=== PATIENT | female | born 1935 | race Caucasian/White ===

== ENCOUNTER 2016-08-18 11:29 | Emergency (ER) | payer MEDICARE ==
[2015-06-19 12:29] VITALS: BMI 34.7
[~2016-08-18 11:29] MED LIST: ALDACTONE25 MG PO; ARICEPT10 MG PO; ARTIFICIAL TEAR15 ML EACH EYE; ASPIRIN EC81 M1 PO; BUSPAR10 MG PO; BUSPAR5 MG PO; CALCIUM 600+D T1 TA1 PO; CRANBERRY475 MG PO; DULCOLAX5 MG; ECOTRIN325 MG PO; EFFEXOR XR150 MG PO; EFFEXOR75 MG PO; FERROUS SULFAT325 MG PO; FLORANEX / LACT1 TAB PO; FOLATE0.4 MG PO; GABAPENTIN100 MG PO; GUAIFENESI100 MG/5 M PO; HUMALOG 30100 UNITS/; HYDROCODONE-APA1 TAB PO; IMDUR60 MG PO; INVANZ1 G/VIAL IM; IPRAT-ALBUT 0.5-3 ML UPD; KLONOPIN1 MG PO; LANTUS INSULIN10 ML SC; LANTUS INSULIN10 ML SQ; LASIX20 MG PO; LEVAQUIN250 MG PO; LEVAQUIN500 MG PO; LIPITOR20 MG PO; LOPID600 MG PO; MAG-OX 400 MG400 MG PO; MAGNESIUM CHLORIDE PO; MULTI-DAY VITAM1 TAB PO; NEURONTIN600 MG PO; NEXIUM40 MG PO; NIASPAN1000 MG PO; NIASPAN500 MG PO; NORCO 10/325 TA1 TA1; NYSTATIN ORAL SU5 ML PO; ONGLYZA5 MG PO; PRAVACHOL40 MG PO; REFRESH TEARS15 ML EACH EYE; ROBITUSSIN DM 110 ML PO; SODIUM BICARBO325 MG PO; SYNTHROID25 MCG PO; SYSTANE NIGHTT3.5 GM EACH EYE; TESSALON PERLE100 MG PO; ULORIC40 MG PO; VITAMIN D5000 UNIT PO; WELLBUTRIN100 MG PO; WELLBUTRIN75 MG PO
== END 2016-08-18 15:47 | disposition home or self-care (01) ==
LOC: D.ER 11:29
DX: S91.311A Laceration without foreign body, right foot, initial encounter (principal); X58.XXXA Exposure to other specified factors, initial encounter; Y93.89 Activity, other specified; Y92.89 Other specified places as the place of occurrence of the external cause; S80.02XA Contusion of left knee, initial encounter; I50.9 Heart failure, unspecified; I12.9 Hypertensive chronic kidney disease with stage 1 through stage 4 chronic kidney disease, or unspecified chronic kidney disease; N18.9 Chronic kidney disease, unspecified; K21.9 Gastro-esophageal reflux disease without esophagitis; F32.9 Major depressive disorder, single episode, unspecified

== ENCOUNTER 2016-09-22 13:47 | Outpatient (CLI) | payer MEDICARE ==
[2015-06-19 12:29] VITALS: BMI 34.7
--- NOTE | 2016-09-22 19:05 | NUR ---
BLOOD TRANSFUSION COMPLETE. PATIENT SITTING IN PARMINDER CHAIR IN ROOM, AWAKE, ALERT, DENIES COMPLAINTS, IV FLUSHED WITH NS
--- NOTE | 2016-09-22 20:05 | NUR ---
PATIENT SITTING IN PARMINDER CHAIR IN ROOM, SLEEPING, EASILY AROUSED, PATIENT HAS NO SIGNS OR SYMPTOMS OF TRANSFUSION REACTION. RIGHT HAND PIV DC'D WITH TIP INTACT. PATIENT DISCHARGED HOME VIA [facility]ER CHAIR WITH [facility] TRANSPORTATION STAFF MEMBER. REPORT CALLED TO REMIGIO AT [facility]
== END 2016-09-22 20:05 | disposition other institution (70) ==
LOC: D.OPS 13:47
DX: D64.9 Anemia, unspecified (principal); R53.81 Other malaise; R06.02 Shortness of breath

== ENCOUNTER 2017-02-17 08:16 | Inpatient (IN) | payer MEDICARE ==
[~2017-02-17] VITALS: Ht 157.5 cm; Wt 77.1 kg
[2017-02-17 08:52] LABS: BASOPHILS 0.4 % (0-2); EOSINOPHILS 3.6 % (0-7); HEMATOCRIT 34.4 % (36.0-48.0); HEMOGLOBIN 10.8 g/dL (12-16); IMMATURE GRANULOCYTES 0.9 % (0-5); LYMPHOCYTES 13.8 % (15-50); MCH 27.5 pg (26.0-34.0); MCHC 31.4 g/dL (31.0-37.0); MCV 87.5 fL (80.0-100.0); MEAN PLATELET VOLUME 10.4 fL (7.4-10.4); MONOCYTES 9.9 % (2-11); NEUTROPHILS 71.4 % (40-80); PLATELET COUNT 372 10x3/uL (130-400); RBC 3.93 10x6/uL (4.00-5.40); RDW 15.1 % (11.5-14.5); WBC 11.1 10x3/uL (4.8-10.8)
[2017-02-17 09:07] LABS: ALBUMIN 2.2 g/dL (3.4-5.0); BILIRUBIN - TOTAL 0.17 mg/dL (0.2-1.3); CALCIUM 8.7 mg/dL (8.5-10.1); CARBON DIOXIDE 22.3 mmol/L (21.0-32.0); CREATININE - SERUM 3.3 mg/dL (0.6-1.3); POTASSIUM - SERUM 4.3 mmol/L (3.5-5.1); PROTEIN - SERUM 6.4 g/dL (6.4-8.2)
[2017-02-17 09:55] LABS: COLOR YELLOW (YELLOW)
[2017-02-17 09:56] LABS: APPEARANCE TURBID (CLEAR); BILIRUBIN NEGATIVE (NEGATIVE); GLUCOSE 500 mg/dL (NEGATIVE); KETONE NEGATIVE (NEGATIVE); NITRITE NEGATIVE (NEGATIVE); PROTEIN 3+ mg/dL (NEGATIVE); SPECIFIC GRAVITY 1.015 (1.005-1.020); UROBILINOGEN NORMAL (NORMAL)
[2017-02-17 10:00] LABS: WHITE CELLS - URINE >50 /hpf (0-5)
[2017-02-17 10:01] LABS: BACTERIA FEW /hpf (NONE SEEN); EPITHELIAL CELLS 0-5 /hpf (0-5)
[2017-02-17 10:02] LABS: AMORPHOUS SEDIMENT <1+ /lpf (NONE SEEN); YEAST NONE SEEN /hpf (NONE SEEN)
[2017-02-17 10:09] LABS: HYALINE CAST RARE /lpf (NONE SEEN); MUCUS <1+ /lpf (NONE SEEN)
[2017-02-17 21:00] VITALS: BP 127/53
[2017-02-17] MEDS ORDERED: PHENYTOIN100 MG/4 M PO (22:33)
[2017-02-17] MEDS ORDERED: NOVOLOG100 U/M1 SC (22:43)
[2017-02-18] VITALS (7 sets, daily range): BP systolic 127–179; BP diastolic 44–75; Ht 157.5 cm; Wt 77.1 kg
[2017-02-18] MEDS ORDERED: DILANTIN 12525 MG/ML PT (02:27)
[2017-02-18] MEDS ORDERED: FISH OIL 1,0001 CA1 PO (02:28)
[2017-02-18] MEDS ORDERED: HEALTHYLAX17 GM PO (02:30)
[2017-02-18] MEDS ORDERED: NEURONTIN 300300 MG PO (02:31)
[2017-02-18] MEDS ORDERED: NATURAL SENNA8.6 MG PO (02:32)
[2017-02-18] MEDS ORDERED: LANTUS INSULIN10 ML SC (02:33)
[2017-02-18] MEDS ORDERED: BUSPAR5 MG PO (02:35)
[2017-02-18] MEDS ORDERED: HYSINGLA ER30 MG PO (02:37)
[2017-02-18 08:38] LABS: ANION GAP 16.2 mmol/L (8-16); CALCIUM 8.2 mg/dL (8.5-10.1); CARBON DIOXIDE 20.2 mmol/L (21.0-32.0); POTASSIUM - SERUM 4.4 mmol/L (3.5-5.1)
[2017-02-18 16:35] LABS: COMPLEMENT C4 21.4 mg/dL (17.4-52.2)
[2017-02-18 17:46] LABS: ERYTHROCYTE SEDIMENTATION RATE 70 mm/hr (0-30)
[2017-02-19 00:59] VITALS: BP 126/57
[2017-02-19 05:27] VITALS: BP 129/52
[2017-02-19 07:23] LABS: BASOPHILS 0.2 % (0-2); EOSINOPHILS 2.3 % (0-7); HEMATOCRIT 31.2 % (36.0-48.0); HEMOGLOBIN 9.6 g/dL (12-16); IMMATURE GRANULOCYTES 0.7 % (0-5); LYMPHOCYTES 11.5 % (15-50); MCH 26.7 pg (26.0-34.0); MCHC 30.8 g/dL (31.0-37.0); MCV 86.7 fL (80.0-100.0); MEAN PLATELET VOLUME 10.5 fL (7.4-10.4); MONOCYTES 8.9 % (2-11); NEUTROPHILS 76.4 % (40-80); PLATELET COUNT 344 10x3/uL (130-400); RDW 14.8 % (11.5-14.5); WBC 9.4 10x3/uL (4.8-10.8)
[2017-02-19 07:27] LABS: ANION GAP 17.7 mmol/L (8-16); CALCIUM 7.6 mg/dL (8.5-10.1); CARBON DIOXIDE 17.1 mmol/L (21.0-32.0); CREATININE - SERUM 2.9 mg/dL (0.6-1.3); POTASSIUM - SERUM 3.8 mmol/L (3.5-5.1)
[2017-02-19 08:52] VITALS: BP 110/54
[2017-02-19 11:15] LABS: APPEARANCE CLOUDY (CLEAR); BILIRUBIN NEGATIVE (NEGATIVE); COLOR YELLOW (YELLOW); GLUCOSE NEGATIVE (NEGATIVE); KETONE NEGATIVE (NEGATIVE); NITRITE NEGATIVE (NEGATIVE); PROTEIN 3+ mg/dL (NEGATIVE); SPECIFIC GRAVITY 1.015 (1.005-1.020); UROBILINOGEN NORMAL (NORMAL); WHITE CELLS - URINE >50 /hpf (0-5)
[2017-02-19 11:16] LABS: BACTERIA MODERATE /hpf (NONE SEEN); EPITHELIAL CELLS 0-5 /hpf (0-5); RED CELLS - URINE >50 /hpf (0-5)
[2017-02-19 12:07] VITALS: BP 100/50
[2017-02-19 12:19] LABS: CREATININE - URINE 40.7 mg/dL (30-125)
[2017-02-19 12:20] LABS: PRO/CRE RATIO URINE 15.9 mg/g; PROTEIN - URINE 647.2 mg/dL (0.0-11.9)
[2017-02-19 18:02] VITALS: BP 156/64
[2017-02-19 20:07] VITALS: BP 94/43
[2017-02-20] VITALS: BP 167/59
[2017-02-20 05:21] VITALS: BP 102/61
[2017-02-20 07:51] VITALS: BP 140/66
[2017-02-20 11:43] VITALS: BP 132/60
[2017-02-20 13:29] LABS: ANION GAP 16.2 mmol/L (8-16); CALCIUM 7.6 mg/dL (8.5-10.1); CARBON DIOXIDE 20.7 mmol/L (21.0-32.0); CREATININE - SERUM 2.7 mg/dL (0.6-1.3); POTASSIUM - SERUM 3.9 mmol/L (3.5-5.1)
[2017-02-20 14:38] LABS: COMPLEMENT C4 24.4 mg/dL (17.4-52.2)
[2017-02-20 15:27] LABS: ERYTHROCYTE SEDIMENTATION RATE 65 mm/hr (0-30)
[2017-02-20 16:31] VITALS: BP 136/66
[2017-02-20 18:43] LABS: CREATININE - URINE 37.5 mg/dL (30-125); PRO/CRE RATIO URINE 15.9 mg/g; PROTEIN - URINE 598.1 mg/dL (0.0-11.9)
[2017-02-20 20:46] VITALS: BP 99/56
[2017-02-21 01:16] VITALS: BP 89/47
[2017-02-21 05:14] VITALS: BP 100/59
[2017-02-21 06:08] LABS: BASOPHILS 0.2 % (0-2); EOSINOPHILS 2.2 % (0-7); HEMATOCRIT 29.4 % (36.0-48.0); HEMOGLOBIN 9.3 g/dL (12-16); IMMATURE GRANULOCYTES 0.9 % (0-5); LYMPHOCYTES 12.4 % (15-50); MCHC 31.6 g/dL (31.0-37.0); MCV 85.5 fL (80.0-100.0); MEAN PLATELET VOLUME 10.1 fL (7.4-10.4); MONOCYTES 8.2 % (2-11); NEUTROPHILS 76.1 % (40-80); PLATELET COUNT 365 10x3/uL (130-400); RBC 3.44 10x6/uL (4.00-5.40); RDW 15.2 % (11.5-14.5); WBC 12.6 10x3/uL (4.8-10.8)
[2017-02-21 06:31] LABS: ANION GAP 16.4 mmol/L (8-16); CALCIUM 7.9 mg/dL (8.5-10.1); CARBON DIOXIDE 20.1 mmol/L (21.0-32.0); CREATININE - SERUM 2.9 mg/dL (0.6-1.3); POTASSIUM - SERUM 3.5 mmol/L (3.5-5.1)
[2017-02-21 08:00] VITALS: BP 125/44
[2017-02-21 11:22] VITALS: BP 138/76
[2017-02-21 16:06] VITALS: BP 102/58
[2017-02-21 20:00] VITALS: BP 143/45
[2017-02-22] VITALS: BP 147/45
[2017-02-22 04:00] VITALS: BP 113/54
[2017-02-22 05:43] LABS: BASOPHILS 0.4 % (0-2); EOSINOPHILS 2.4 % (0-7); HEMATOCRIT 29.8 % (36.0-48.0); HEMOGLOBIN 9.2 g/dL (12-16); IMMATURE GRANULOCYTES 1.1 % (0-5); LYMPHOCYTES 12.3 % (15-50); MCH 26.5 pg (26.0-34.0); MCHC 30.9 g/dL (31.0-37.0); MCV 85.9 fL (80.0-100.0); MEAN PLATELET VOLUME 10.1 fL (7.4-10.4); MONOCYTES 9.1 % (2-11); NEUTROPHILS 74.7 % (40-80); PLATELET COUNT 374 10x3/uL (130-400); RBC 3.47 10x6/uL (4.00-5.40); RDW 15.2 % (11.5-14.5); WBC 11.3 10x3/uL (4.8-10.8)
[2017-02-22 05:50] LABS: ANION GAP 17.7 mmol/L (8-16); CARBON DIOXIDE 19.9 mmol/L (21.0-32.0); CREATININE - SERUM 2.8 mg/dL (0.6-1.3); POTASSIUM - SERUM 3.6 mmol/L (3.5-5.1)
[2017-02-22 07:00] VITALS: BP 91/47
[2017-02-22 09:09] LABS: ANTI-GLOMERULAR BASMENT MEMBRN 6 units (0-20)
[2017-02-22 12:48] VITALS: BP 120/60
[2017-02-22 14:14] LABS: UPE RAND - ALBUMIN 55.9 % (()); UPE RAND - ALPHA 1 GLOBULIN 8.2 % (()); UPE RAND - ALPHA 2 GLOBULIN 10.2 % (()); UPE RAND - BETA GLOBULIN 13.4 % (()); UPE RAND - GAMMA GLOBULIN 12.3 % (())
[2017-02-22 15:19] LABS: ANA REFLEX - DIRECT Negative (Negative)
[2017-02-22 16:11] LABS: SPE - A/G RATIO 0.9 (0.7-1.7); SPE - ALBUMIN 2.3 g/dL (2.9-4.4); SPE - ALPHA-1 GLOBULIN 0.2 g/dL (0.0-0.4); SPE - BETA GLOBULIN 0.7 g/dL (0.7-1.3); SPE - GAMMA GLOBULIN 0.7 g/dL (0.4-1.8); SPE - M-SPIKE Not Observed g/dL (Not Observed)
[2017-02-22 17:31] VITALS: BP 116/45
[2017-02-22 21:30] VITALS: BP 139/46
[2017-02-23 06:11] VITALS: BP 116/46
[2017-02-23 06:40] LABS: BASOPHILS 0.3 % (0-2); EOSINOPHILS 2.9 % (0-7); HEMATOCRIT 30.5 % (36.0-48.0); HEMOGLOBIN 9.5 g/dL (12-16); IMMATURE GRANULOCYTES 0.5 % (0-5); LYMPHOCYTES 11.7 % (15-50); MCH 26.6 pg (26.0-34.0); MCHC 31.1 g/dL (31.0-37.0); MCV 85.4 fL (80.0-100.0); MONOCYTES 10.6 % (2-11); PLATELET COUNT 394 10x3/uL (130-400); RBC 3.57 10x6/uL (4.00-5.40); RDW 15.5 % (11.5-14.5); WBC 12.3 10x3/uL (4.8-10.8)
[2017-02-23 06:45] LABS: ANION GAP 14.8 mmol/L (8-16); CALCIUM 7.7 mg/dL (8.5-10.1); POTASSIUM - SERUM 3.8 mmol/L (3.5-5.1)
[2017-02-23 07:58] VITALS: BP 185/61
[2017-02-23 10:16] LABS: ANA REFLEX - DIRECT Negative (Negative)
[2017-02-23 11:50] VITALS: BP 154/60
[2017-02-23 13:15] LABS: UPE RAND - ALBUMIN 60.4 % (()); UPE RAND - ALPHA 1 GLOBULIN 3.7 % (()); UPE RAND - ALPHA 2 GLOBULIN 11.3 % (()); UPE RAND - BETA GLOBULIN 11.6 % (())
[2017-02-23 15:12] VITALS: BP 158/51
[2017-02-23 16:12] LABS: ANCA - ANTIMYELOPEROXIDASE <9.0 U/mL (0.0-9.0); ANCA - ANTIPROTEINASE 3 <3.5 U/mL (0.0-3.5); ANCA - ATYPICAL <1:20 titer (Neg:<1:20); ANCA - CYTOPLASMIC <1:20 titer (Neg:<1:20); ANCA - PERINUCLEAR <1:20 titer (Neg:<1:20)
[2017-02-23 20:00] VITALS: BP 145/47
[2017-02-24] VITALS: BP 161/50
[2017-02-24 04:00] VITALS: BP 157/52
[2017-02-24 06:12] LABS: SPE - A/G RATIO 0.9 (0.7-1.7); SPE - ALBUMIN 2.3 g/dL (2.9-4.4); SPE - ALPHA-1 GLOBULIN 0.2 g/dL (0.0-0.4); SPE - BETA GLOBULIN 0.7 g/dL (0.7-1.3); SPE - GAMMA GLOBULIN 0.8 g/dL (0.4-1.8); SPE - M-SPIKE Not Observed g/dL (Not Observed)
[2017-02-24 06:19] LABS: BASOPHILS 0.5 % (0-2); EOSINOPHILS 4.4 % (0-7); HEMATOCRIT 28.6 % (36.0-48.0); HEMOGLOBIN 8.9 g/dL (12-16); IMMATURE GRANULOCYTES 0.5 % (0-5); LYMPHOCYTES 16.7 % (15-50); MCH 26.5 pg (26.0-34.0); MCHC 31.1 g/dL (31.0-37.0); MCV 85.1 fL (80.0-100.0); MEAN PLATELET VOLUME 10.2 fL (7.4-10.4); MONOCYTES 11.2 % (2-11); NEUTROPHILS 66.7 % (40-80); PLATELET COUNT 380 10x3/uL (130-400); RBC 3.36 10x6/uL (4.00-5.40); RDW 15.5 % (11.5-14.5)
[2017-02-24 06:22] LABS: WBC 8.7 10x3/uL (4.8-10.8)
[2017-02-24 06:41] LABS: ANION GAP 17.5 mmol/L (8-16); CALCIUM 7.9 mg/dL (8.5-10.1); CARBON DIOXIDE 19.1 mmol/L (21.0-32.0); CREATININE - SERUM 2.9 mg/dL (0.6-1.3); POTASSIUM - SERUM 3.6 mmol/L (3.5-5.1)
[2017-02-24 08:41] VITALS: BP 104/58
[2017-02-24 09:14] LABS: ANTI-GLOMERULAR BASMENT MEMBRN 6 units (0-20)
[2017-02-24 12:30] VITALS: BP 140/70
[2017-02-24 17:27] VITALS: BP 135/66
[2017-02-24 19:00] VITALS: BP 130/58
[2017-02-25] VITALS: BP 146/60
[2017-02-25 04:00] VITALS: BP 151/64
[2017-02-25 04:55] LABS: BASOPHILS 0.2 % (0-2); EOSINOPHILS 2.2 % (0-7); HEMATOCRIT 31.4 % (36.0-48.0); HEMOGLOBIN 9.8 g/dL (12-16); IMMATURE GRANULOCYTES 0.4 % (0-5); LYMPHOCYTES 10.7 % (15-50); MCH 26.6 pg (26.0-34.0); MCHC 31.2 g/dL (31.0-37.0); MCV 85.1 fL (80.0-100.0); MEAN PLATELET VOLUME 10.1 fL (7.4-10.4); MONOCYTES 8.8 % (2-11); NEUTROPHILS 77.7 % (40-80); PLATELET COUNT 433 10x3/uL (130-400); RBC 3.69 10x6/uL (4.00-5.40); RDW 15.3 % (11.5-14.5)
[2017-02-25 05:10] LABS: ANION GAP 15.7 mmol/L (8-16); CALCIUM 8.2 mg/dL (8.5-10.1); CARBON DIOXIDE 20.7 mmol/L (21.0-32.0); CREATININE - SERUM 2.7 mg/dL (0.6-1.3); POTASSIUM - SERUM 3.4 mmol/L (3.5-5.1); WBC 12.9 10x3/uL (4.8-10.8)
[2017-02-25 08:07] VITALS: BP 174/57
[2017-02-25 11:10] VITALS: BP 167/67
[2017-02-25 15:27] VITALS: BP 148/66
[2017-02-25 20:00] VITALS: BP 187/59
[2017-02-26] VITALS: BP 175/51
[2017-02-26 04:00] VITALS: BP 145/58
[2017-02-26 05:34] LABS: BASOPHILS 0.5 % (0-2); EOSINOPHILS 5.3 % (0-7); HEMATOCRIT 32.8 % (36.0-48.0); HEMOGLOBIN 10.3 g/dL (12-16); IMMATURE GRANULOCYTES 0.3 % (0-5); LYMPHOCYTES 13.5 % (15-50); MCH 26.7 pg (26.0-34.0); MCHC 31.4 g/dL (31.0-37.0); MEAN PLATELET VOLUME 10.2 fL (7.4-10.4); MONOCYTES 8.9 % (2-11); NEUTROPHILS 71.5 % (40-80); PLATELET COUNT 418 10x3/uL (130-400); RBC 3.86 10x6/uL (4.00-5.40); RDW 15.2 % (11.5-14.5); WBC 10.7 10x3/uL (4.8-10.8)
[2017-02-26 06:13] LABS: ANION GAP 17.3 mmol/L (8-16); CALCIUM 8.5 mg/dL (8.5-10.1); CREATININE - SERUM 2.6 mg/dL (0.6-1.3); POTASSIUM - SERUM 3.3 mmol/L (3.5-5.1)
[2017-02-26 07:48] VITALS: BP 145/58
[2017-02-26 11:39] VITALS: BP 153/48
[2017-02-26 12:16] LABS: ANCA - ANTIMYELOPEROXIDASE <9.0 U/mL (0.0-9.0); ANCA - ANTIPROTEINASE 3 <3.5 U/mL (0.0-3.5); ANCA - ATYPICAL <1:20 titer (Neg:<1:20); ANCA - CYTOPLASMIC <1:20 titer (Neg:<1:20); ANCA - PERINUCLEAR <1:20 titer (Neg:<1:20)
[2017-02-26 16:42] VITALS: BP 114/50
[2017-02-26 19:00] VITALS: BP 125/66
[2017-02-27 04:00] VITALS: BP 115/51
[2017-02-27 06:25] LABS: BASOPHILS 0.3 % (0-2); EOSINOPHILS 4.7 % (0-7); HEMATOCRIT 30.4 % (36.0-48.0); HEMOGLOBIN 9.5 g/dL (12-16); IMMATURE GRANULOCYTES 0.3 % (0-5); LYMPHOCYTES 13.7 % (15-50); MCH 26.8 pg (26.0-34.0); MCHC 31.3 g/dL (31.0-37.0); MCV 85.9 fL (80.0-100.0); MONOCYTES 9.8 % (2-11); NEUTROPHILS 71.2 % (40-80); PLATELET COUNT 409 10x3/uL (130-400); RBC 3.54 10x6/uL (4.00-5.40); RDW 15.1 % (11.5-14.5); WBC 10.4 10x3/uL (4.8-10.8)
[2017-02-27 06:39] LABS: ANION GAP 16.9 mmol/L (8-16); CALCIUM 8.5 mg/dL (8.5-10.1); CARBON DIOXIDE 19.9 mmol/L (21.0-32.0); CREATININE - SERUM 2.7 mg/dL (0.6-1.3)
[2017-02-27 06:42] LABS: POTASSIUM - SERUM 3.8 mmol/L (3.5-5.1)
[2017-02-27 08:26] VITALS: BP 122/50
[2017-02-27 11:40] VITALS: BP 169/51
[2017-02-27] MEDS ORDERED: ANORO ELLIPTA1 EACH INH (14:34)
[2017-02-27] MEDS ORDERED: DILANTIN 12525 MG/ML PO ×2 (14:37→14:38)
[2017-02-27] MEDS ORDERED: KLONOPIN1 MG PO (14:39)
[2017-02-27] MEDS ORDERED: LANTUS INSULIN10 ML SC (14:40)
[2017-02-27 16:11] VITALS: BP 146/62
== END 2017-02-27 16:39 | DRG 698 ==
LOC: D.ER 08:16 → D.M2 11:06
PROVIDERS: Emergency Medicine; Family Medicine; Internal Medicine Nephrology
DX: E11.21 Type 2 diabetes mellitus with diabetic nephropathy (principal); J18.9 Pneumonia, unspecified organism; G93.41 Metabolic encephalopathy; G93.49 Other encephalopathy; I13.0 Hypertensive heart and chronic kidney disease with heart failure and stage 1 through stage 4 chronic kidney disease, or unspecified chronic kidney disease; I50.22 Chronic systolic (congestive) heart failure; N39.0 Urinary tract infection, site not specified; J44.0 Chronic obstructive pulmonary disease with (acute) lower respiratory infection; I69.951 Hemiplegia and hemiparesis following unspecified cerebrovascular disease affecting right dominant side; N17.9 Acute kidney failure, unspecified; E11.22 Type 2 diabetes mellitus with diabetic chronic kidney disease; N18.9 Chronic kidney disease, unspecified; L89.309 Pressure ulcer of unspecified buttock, unspecified stage; G25.3 Myoclonus; F41.8 Other specified anxiety disorders; E78.5 Hyperlipidemia, unspecified; I25.10 Atherosclerotic heart disease of native coronary artery without angina pectoris; E86.0 Dehydration; K21.9 Gastro-esophageal reflux disease without esophagitis; E55.9 Vitamin D deficiency, unspecified; E03.9 Hypothyroidism, unspecified; G30.9 Alzheimer's disease, unspecified; F02.80 Dementia in other diseases classified elsewhere, unspecified severity, without behavioral disturbance, psychotic disturbance, mood disturbance, and anxiety; M19.90 Unspecified osteoarthritis, unspecified site; K59.00 Constipation, unspecified; I69.919 Unspecified symptoms and signs involving cognitive functions following unspecified cerebrovascular disease; F01.50 Vascular dementia, unspecified severity, without behavioral disturbance, psychotic disturbance, mood disturbance, and anxiety; G89.29 Other chronic pain; Z86.718 Personal history of other venous thrombosis and embolism; Z72.0 Tobacco use